=== PATIENT | male | born 1945 | race Caucasian/White ===

== ENCOUNTER 2017-12-10 15:51 | Emergency (ER) | payer OTHER ==
[2017-12-10 16:08] VITALS: BP 160/92
[2017-12-10] MEDS ORDERED: TDAP ADULT 0.5 ML INJ (BOOSTRIX) IM ONE (16:17)
--- NOTE | 2017-12-10 16:23 | EDPHY ---
General Time Seen by Provider: 12/10/17 16:18 Narrative: CHIEF COMPLAINT: Smashed my finger HISTORY OF PRESENT ILLNESS: Patient presents by private vehicle with complaints of "I smashed my finger." He states that he was at work across the street at [employer]. He was attempting to "move one pole from within another," when 1 of the poles slipped, smashing his right 5th finger between the pole and a piece concrete. He was not pinned in this position, was very brief incident. He sustained a laceration to the tip of the finger and instant pain to the right pinky finger. It was moderately to severely painful at 1st, now mildly painful. Worse with palpation and movement. Able to bend straighten the finger. No pulsatile bleeding. The bleeding has stopped with pressure. Numbness, tingling or weakness. No pain in the remaining fingers or right hand. No pain in the right wrist or elbow. No use of anticoagulants. No injury elsewhere. He is right-hand dominant. No other associated complaints or modifying factors TIME OF INJURY: Just prior to arrival TETANUS STATUS: Uncertain. Questionably done 3-4 years ago MEDICAL/SURGICAL/SOCIAL HISTORY: Hypertension. No anticoagulants. Nonsmoker. Lives and works here independently. REVIEW OF SYSTEMS: Ten systems reviewed and are negative unless otherwise noted in the HPI EXAMINATION General Appearance: Alert, no distress Head: normocephalic, atraumatic Cardiovascular: Symmetric radial pulses 2+. Brisk cap refill in all fingers of the right hand. Neurological: A&O, 2 point and light sensory symmetric, shirt cleaner and interossei strength symmetric Skin: Warm and dry, no rash. There are 3 Lacerations on the right 5th finger, distal phalanx, volar measuring approximately 1 cm. 0.5 cm, 0.5 cm. There is subcutaneous fat extruding. No foreign body. No pulsatile bleeding. No visualization of the underlying bone. No injury to the nail and nail bed. Extremities: Tenderness of the right 5th finger over the distal phalanx in the area of the laceration. There is no injury to the nail and nail bed. There is no injury to the remainder of the right hand. Range of motion of reveals full extension and flexion of the fingers including superficialis and profundus. All compartments are soft in the right upper extremity with symmetric range of motion of the wrist, elbow and shoulders. DIFFERENTIAL DIAGNOSES: Including but not limited to crush injury, tuft fracture, laceration, subungual hematoma, contusion, sprain, strain MDM: 4:10 p.m. Brief crush injury to the right 5th finger with associated laceration. There is moderate dry blood surrounding the wound making it difficult to examine the laceration. I have administered a digital block we will irrigate the wound, obtain an x-ray and re-evaluate. 5:00 p.m. Lacerations have been repaired without difficulty. I was able to close the wound with good approximation. These wounds are superficial and I do not feel there is direct communication to the tuft fracture, but given the location he will be placed on prophylactic antibiotics. I discussed the importance of wound care and splint management. We discuss strict ED precautions for signs of infection, bleeding, numbness or weakness. We discussed mandatory hand follow-up for definitive care of the fracture proximity to the laceration. He is comfortable this plan. He is well-appearing, he is neuro intact and discharged home stable condition. PROCEDURE: Laceration repair, 1. Consent: Verbal Location: Right 5th finger, distal phalanx Length of repair: 1 cm Complexity: Complex due to location of fat extrusion Layer involvement: Anesthesia: Irrigation: Extensive Debridement: Procedure description: Following good anesthesia, the wound was copiously irrigated. Wound bed was explored with a sterile glove, and there is no foreign body noted. Wound borders were approximated well with good hemostasis. Tolerated well without complication. Suture/Staple material: 5-0 Prolene, 3 simple ruptured sutures Wound care: Routine as discussed Suture/Staple removal: 10 Days PROCEDURE: Laceration repair, 2. Consent: Verbal Location: Right 5th finger, distal phalanx pad Length of repair: 0.5 cm Complexity: Simple Layer involvement: Single Anesthesia: Digital block Irrigation: Extensive Debridement: None Procedure description: Following good anesthesia, the wound was copiously irrigated. Wound bed was explored with a sterile glove, and there is no foreign body noted. No deep tissue structure injury noted. Wound borders were approximated well with good hemostasis. Tolerated well without complication. Suture/Staple material: 5-0 Prolene, 2 simple interrupted sutures Wound care: Routine as discussed Suture/Staple removal: 10 Days PROCEDURE: Laceration repair, 3. Consent: Verbal Location: Right 5th finger, distal phalanx pad Length of repair: 0.5 cm Complexity: Simple Layer involvement: Single Anesthesia: Digital block Irrigation: Extensive Debridement: None Procedure description: Following good anesthesia, the wound was copiously irrigated. Wound bed was explored with a sterile glove, and there is no foreign body noted. No deep tissue structure injury noted. Wound borders were approximated well with good hemostasis. Tolerated well without complication. Suture/Staple material: 5-0 Prolene, 1 simple interrupted suture Wound care: Routine as discussed Suture/Staple removal: 10 Days PROCEDURE: Digital Block Indication: Finger laceration Consent: Verbal Location: Right 5th finger Anesthesia: Lidocaine 1% plain, 0.25% Marcaine plain, 5mL Description: Base of the finger was prepped. The above was infused without difficulty. Tolerated well. Good anesthesia. Complications: None SUPERVISION: This patient was independently evaluated without direct involvement of or examination by the attending physician. ED Precautions: Worsening pain. Erythema, edema, cyanosis, pallor, paresthesia or anesthesia. - Diagnostics Imaging Results: Imaging Impressions Finger X-Ray 12/10/17 16:18 Impression: 1. Nondisplaced fracture distal tuft right fifth digit distal phalanx with adjacent gas related to laceration. - History Smoking Status: Former smoker - Objective Vital Signs: Initial Vital Signs Temperature (C) 97.9 F 12/10/17 16:05 Heart Rate 79 12/10/17 16:05 Respiratory Rate 16 12/10/17 16:05 Blood Pressure 160/92 H 12/10/17 16:05 O2 Sat (%) 95 12/10/17 16:05 O2 Delivery Mode Room Air Allergies/Adverse Reactions: Penicillins Allergy (Verified 12/10/17 16:04) Home Medications: Medication Instructions Recorded Cephalexin [Keflex (*)] 500 mg PO TID #21 cap 12/10/17 Medications Given: Discontinued Medications Diphtheria/Tetanus/Acell Pertussis (Boostrix) 0.5 ml IM .ONCE ONE Stop: 12/10/17 16:18 Last Admin: 12/10/17 16:20 Dose: 0.5 ml Departure - Departure Disposition: Home, Routine, Self-Care Clinical Impression: Crushing injury of right little finger, initial encounter, Closed fracture of tuft of distal phalanx of finger Laceration of right little finger w/o foreign body w/o damage to nail Qualifiers: Encounter type: initial encounter Qualified Code(s): S61.216A - Laceration without foreign body of right little finger without damage to nail, initial encounter Condition: Good Instructions: Finger Laceration (ED), Crush Injury (ED) Additional Instructions: 1. Daily wound care as discussed. Keep your splint in place until seen by hand surgeon 2. Follow up with hand surgeon for definitive care of the tuft fracture 3. Worker's compensation follow-up as discussed 4. Return here in 10 days for suture removal. You do not need an appointment 5. Antibiotics as prescribed to completion Referrals: Ki Chahal MD [Medical Doctor] - As per Instructions Physician,Emergency DeptMD [Medical Doctor] - As per Instructions (7-10 days for suture removal) Stand Alone Forms: Work Comp Follow Up Prescriptions: Cephalexin [Keflex (*)] 500 mg PO TID #21 cap
== END 2017-12-10 17:35 | disposition home or self-care (01) ==
PROC: 0HQFXZZ Repair Right Hand Skin, External Approach (ICD-10-PCS; principal; 2017-12-10)
DX: S61.216A Laceration without foreign body of right little finger without damage to nail, initial encounter (principal); W23.0XXA Caught, crushed, jammed, or pinched between moving objects, initial encounter; Y93.H9 Activity, other involving exterior property and land maintenance, building and construction; Y99.0 Civilian activity done for income or pay; Y92.59 Other trade areas as the place of occurrence of the external cause
CPT/HCPCS: L3925